=== PATIENT | female | born 1975 | race Caucasian/White ===

== ENCOUNTER 2019-11-11 21:49 | Emergency (ER) | payer OTHER, SELFPAY ==
[2019-11-11] VITALS (11 sets, daily range): BP systolic 143–190; BP diastolic 88–115; PULSE 90–125; RESP 17–29; TEMP 36.8–37.5; O2SAT 94–97; BMI 47.7
--- NOTE | 2019-11-11 22:08 | ED_ITS ---
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 She states she was sitting on her couch and she bent her knee and started feeling pain in her lateral knee but then had discomfort in her calf and thigh which reminded her of prior DVT. She went on to develop some chest pain, pressure and shortness of breath and became concerned that perhaps she had another clot. She denies any runny nose or sore throat. She denies fever or chills. She denies nausea, vomiting or diarrhea. She has had no abdominal pain or urinary complaints. She denies recent travel or exposure to persons known to have COVID-19 Other symptoms: chest pain and SOB Related Data Allergies Allergy/AdvReac Type Severity Reaction Status Date / Time No Known Drug Allergies Allergy Verified 11/11/19 21:59 Review of Systems Constitutional Constitutional: Denies chills, Denies fatigue, Denies fever(s), Denies frequent falls, Denies lethargy and Denies weakness Eyes Eyes: Denies change in vision, Denies eye discharge, Denies irritation and Denies loss of vision ENT Ears, Nose, Mouth, and Throat: Denies change in voice, Denies dizziness, Denies neck pain, Denies sore throat and Denies throat swelling Cardiovascular Cardiovascular: Denies chest pain, Denies irregular heart rhythm, Denies lightheadedness, Denies palpitations, Reports dyspnea, Denies dyspnea on exertion and Denies orthopnea Respiratory Respiratory: Denies cough, Reports dyspnea, Denies dyspnea on exertion and Denies wheezing Gastrointestinal Gastrointestinal: Denies abdominal pain, Denies change in bowel habits, Denies diarrhea, Denies nausea and Denies vomiting Musculoskeletal Musculoskeletal: Denies neck pain and Denies numbness Comments: leg pain Integumentary/Breasts Skin/Breast: Denies pruritus, Denies erythema, Denies rash and Denies wounds Neurologic Neurologic: Denies behavioral changes, Denies confusion, Denies dizziness, Denies frequent falls, Denies loss of vision, Denies numbness and Denies weakness Psychiatric Psychiatric: Denies anxiety, Denies behavioral changes, Denies confusion, Denies depression, Denies homicidal ideation and Denies suicidal ideation Endocrine Endocrine: Denies fatigue, Denies flushing and Denies palpitations Hematologic/Lymphatic Hematologic/Lymphatic: Denies easy bruising Allergic/Immunologic Allergic/Immunologic: Denies urticaria, Denies throat swelling and Denies wheezing Patient History Social History Smoking Status: Never smoker Smoking Status: Never smoker alcohol intake frequency: 0-2 drinks per day Substance Use Type: does not use Exam Narrative Exam Narrative: GENERAL: [44] year old patient appears stated age. Well- nourished, well-developed patient, in mild distress. A bit anxious HEAD: Atraumatic. Normocephalic. EYES: Pupils equal round and reactive. Extraocular motions intact. No scleral icterus. No injection or drainage. ENT: Nose without bleeding, purulent drainage. Throat without erythema, tonsillar hypertrophy or exudate. Airway patent. NECK: Trachea midline. Non tender CARDIOVASCULAR: Regular rate and rhythm without murmurs, gallops, or rubs. RESPIRATORY: Clear to auscultation. Breath sounds equal bilaterally. No wheezes, rales, or rhonchi. GASTROINTESTINAL: Abdomen soft, non-tender, nondistended. EXTREMITIES: Pain on palpation of right lateral knee, no swelling, redness. BACK: Nontender without deformity or crepitance. No flank tenderness. NEURO: AOx3. SKIN: No rash or erythema of visible areas Initial Vital Signs Initial Vital Signs: Vital Signs Temperature 98.2 F 11/11/19 21:50 Pulse Rate 125 H 11/11/19 21:50 Respiratory Rate 19 11/11/19 21:50 Blood Pressure 188/115 H 11/11/19 21:50 Pulse Oximetry 95 11/11/19 21:50 Scores ABCD2 Citation: Lancet. 2006Mar 31;369(6153):283-92. Validation and refinement of scores to predict very early stroke risk after transient ischaemic attack. Roberta SC1, Silvia PM, [place], Mirza MF, Eulogio JS, Gale AL, Juanjo S. Course Orders Ordered: ED Orders 11/11/19 21:59 EKG-12 Lead Stat 11/11/19 22:14 US periph venous low extrem rt Stat 11/11/19 22:30 Basic Metabolic Panel Stat Complete Blood Count AUTO DIFF Stat D Dimer Stat NT-proBNP (BNP-Adult 18+) Stat Prothrombin Time INR Stat Troponin & CK Cardiac Panel Stat 11/11/19 23:05 CT angio chest PE protocol Stat Discontinued Medications Sodium Chloride (Normal Saline 0.9%) 1,000 mls @ 125 mls/hr IV CONT JENNIFER Last Infusion: 11/12/19 00:16 Dose: 0 mls/hr Documented by: Admin: 11/11/19 22:47 Dose: 125 mls/hr Documented by: YVES Vital Signs Vital signs: Vital Signs - 8 hr 11/11/19 21:50 11/11/19 21:55 11/11/19 21:59 Temperature 98.2 F Pulse Rate 125 H 125 H 116 H Respiratory Rate 19 19 Blood Pressure 188/115 H 188/115 H 190/88 H Pulse Oximetry 95 94 97 11/11/19 22:00 11/11/19 22:01 11/11/19 22:30 Temperature Pulse Rate 112 H 116 H 103 H Respiratory Rate 17 20 29 H Blood Pressure 143/92 H Pulse Oximetry 97 97 95 11/11/19 22:32 11/11/19 23:00 11/11/19 23:39 Temperature Pulse Rate 109 H 97 H 110 H Respiratory Rate 25 H 22 Blood Pressure 148/105 H 145/90 H Pulse Oximetry 95 94 97 11/11/19 23:47 11/11/19 23:54 Temperature 99.5 F Pulse Rate 90 Respiratory Rate 21 Blood Pressure 151/88 H Pulse Oximetry 97 MDM - Extremity Injury (Lower) Lab Data Result diagrams: 11/11/19 22:30 11/11/19 22:30 Labs: Lab Results 11/11/19 11/11/19 11/11/19 Range/Units 22:30 22:30 22:30 WBC 17.0 H (4.5-11.0) X10^3/uL RBC 4.64 (4.0-5.2) X10^6/uL Hgb 13.7 (12.0-16.0) g/dL Hct 41.0 (36-46) % MCV 88.2 (80-100) fL MCH 29.6 (26-34) PG MCHC 33.6 (30-36) % RDW 13.1 (11.6-14.8) % Plt Count 348 (150-400) X10^3/uL Neut % (Auto) 66.3 (50-75) % Lymph % (Auto) 25.7 (25-40) % Turner % (Auto) 5.9 (3-14) % Eos % (Auto) 1.2 L (2-4) % Baso % (Auto) 0.9 (0-2) % Neut # (Auto) 49046 H (2813-6516) /uL Lymph # (Auto) 4400 (3967-8748) /uL Turner # (Auto) 1000 H (0-900) /uL Eos # (Auto) 200 (0-450) /uL Baso # (Auto) 200 H (0-100) /uL PT (10.1-12.7) SECONDS INR (0.9-1.3) D-Dimer 285 H (<230) ng/mL Sodium 138 (137-145) mmol/L Potassium 3.8 (3.4-5.1) mmol/L Chloride 106 (98-107) mmol/L Carbon Dioxide 25 (22-32) mmol/L BUN 13 (7-17) mg/dL Creatinine 0.88 (0.52-1.04) mg/dL Estimated GFR > 60.0 (>60) mL/min BUN/Creatinine Ratio 14.8 (6-22) Glucose 116 H (70-100) mg/dL Calcium 9.2 (8.4-10.2) mg/dL Total Creatine Kinase (30-135) U/L CK-MB (CK-2) CK-MB (CK-2) Rel Index Troponin I (0.01-0.034) ng/mL NT-Pro-B Natriuret Pep 60 (<125) pg/mL 11/11/19 11/11/19 Range/Units 22:30 22:30 WBC (4.5-11.0) X10^3/uL RBC (4.0-5.2) X10^6/uL Hgb (12.0-16.0) g/dL Hct (36-46) % MCV (80-100) fL MCH (26-34) PG MCHC (30-36) % RDW (11.6-14.8) % Plt Count (150-400) X10^3/uL Neut % (Auto) (50-75) % Lymph % (Auto) (25-40) % Turner % (Auto) (3-14) % Eos % (Auto) (2-4) % Baso % (Auto) (0-2) % Neut # (Auto) (1711-4160) /uL Lymph # (Auto) (2461-0955) /uL Turner # (Auto) (0-900) /uL Eos # (Auto) (0-450) /uL Baso # (Auto) (0-100) /uL PT 10.7 (10.1-12.7) SECONDS INR 0.9 (0.9-1.3) D-Dimer (<230) ng/mL Sodium (137-145) mmol/L Potassium (3.4-5.1) mmol/L Chloride (98-107) mmol/L Carbon Dioxide (22-32) mmol/L BUN (7-17) mg/dL Creatinine (0.52-1.04) mg/dL Estimated GFR (>60) mL/min BUN/Creatinine Ratio (6-22) Glucose (70-100) mg/dL Calcium (8.4-10.2) mg/dL Total Creatine Kinase 50 (30-135) U/L CK-MB (CK-2) TNP CK-MB (CK-2) Rel Index TNP Troponin I < 0.012 (0.01-0.034) ng/mL NT-Pro-B Natriuret Pep (<125) pg/mL Urine Dip Bedside Urine Glucose Negative Bedside Urine Bilirubin - Negative Bedside Urine Ketone +/- 5 Urine Specific [place] 1.025 Bedside Urine Occult Blood - Negative Bedside Urine pH 6.0 Bedside Urine Protein +/- 15 Bedside Urine Urobilinogen - Negative Bedside Urine Nitrite - Negative Bedside Urine Leukocytes - Negative Esterase Imaging Data US - DVT: Radiologist's Impression: No DVT CT scan - chest: Attestation: I personally reviewed and interpreted this imaging study as follows: Radiologist's Impression: No PE. No AAA. No Pneumonia Discharge Plan Departure Patient Disposition: Home Clinical Impression: Feared complaint without diagnosis Acute leg pain Qualifiers: Laterality: right Qualified Code(s): M79.604 - Pain in right leg Discharge Date/Time: 11/12/19 00:18 Activity Restrictions/Additional Instructions: *You have been diagnosed with [right leg pain, no evidence of clot. CT scan of her chest also very reassuring.] *What to do: *Take medications as directed *Follow up with your primary care provider in 2-3 days, call for an appointment. Let them know you were seen in the Emergency Department and that we ask that you be seen in follow up *Return to ER if you should have any new, worsening or concerning symptoms Referrals: [facility] [Outside]
--- NOTE | 2019-11-11 22:14 | DI.US.S_ITS ---
PROCEDURE: US PERIPH VENOUS LOW EXTREM RT INDICATIONS: PAIN, EDEMA TECHNIQUE: Real-time imaging, as well as color and pulse Doppler interrogation, were performed of the lower extremity deep veins from the inguinal ligament to the popliteal fossa. COMPARISON: None. FINDINGS: The common femoral, femoral and popliteal veins are normally compressible, and free of intraluminal thrombus. Color and pulse Doppler demonstrate normal phasic intraluminal flow. There is normal augmentation response to distal compression maneuver. IMPRESSION: Negative for deep venous thrombosis of the right lower extremity. No significant discrepancy with the night auditor radiology preliminary report. Dictated by: Farhat Zhao M.D. on 11/12/2019 at 7:09 Approved by: Farhat Zhao M.D. on 11/12/2019 at 7:10
[2019-11-11 22:45] LABS: Add Manual Diff / Slide Review NO; Basophils Absolute Auto 200 /uL (0-100); Basophils Percent Auto 0.9 % (0-2); Eosinophils Absolute Auto 200 /uL (0-450); Eosinophils Percent Auto 1.2 % (2-4); Hemoglobin 13.7 g/dL (12.0-16.0); Lymphocytes Absolute Auto 4400 /uL (1100-4500); Lymphocytes Percent Auto 25.7 % (25-40); Mean Corpuscular HGB Conc 33.6 % (30-36); Mean Corpuscular Hemoglobin 29.6 PG (26-34); Mean Corpuscular Volume 88.2 fL (80-100); Monocytes Absolute Auto 1000 /uL (0-900); Monocytes Percent Auto 5.9 % (3-14); Neutrophils Absolute Auto 11300 /uL (1500-7000); Neutrophils Percent Auto 66.3 % (50-75); Platelet Count 348 X10^3/uL (150-400); Red Blood Cell Count 4.64 X10^6/uL (4.0-5.2); Red Cell Distribution Width 13.1 % (11.6-14.8)
[2019-11-11] MEDS: SODIUM CHLORIDE 0.9% 1,000 ML 125 ML IV (22:47)
[2019-11-11 22:50] LABS: INR 0.9 (0.9-1.3); Prothrombin Time 10.7 SECONDS (10.1-12.7)
[2019-11-11 22:53] LABS: Creatine Kinase 50 U/L (30-135)
[2019-11-11 22:54] LABS: BUN Creatinine Ratio 14.8 (6-22); Blood Urea Nitrogen 13 mg/dL (7-17); Calcium 9.2 mg/dL (8.4-10.2); Carbon Dioxide 25 mmol/L (22-32); Chloride 106 mmol/L (98-107); Estimated Glomerular Filt Rate > 60.0 mL/min (>60); Glucose 116 mg/dL (70-100); Potassium 3.8 mmol/L (3.4-5.1); Sodium 138 mmol/L (137-145)
--- NOTE | 2019-11-11 22:56 | PC.NURSE ---
reports shortness of breath, states she walked dog three times today and has asthma and feels she has been very sensitive to the smoke.
[2019-11-11 22:58] LABS: D Dimer 285 ng/mL (<230)
--- NOTE | 2019-11-11 23:05 | DI.CT.S_ITS ---
PROCEDURE: CT ANGIO CHEST PE PROTOCOL INDICATIONS: Chest pain, Shortness of breath, tachycardia, history of PE TECHNIQUE: After the administration of intravenous contrast, 2 mm thick sections acquired from the pulmonary apices to the posterior costophrenic angles. 3-dimensional maximum intensity projection (MIP) coronal and sagittal reformats were then acquired through the thorax. For radiation dose reduction, the following was used: automated exposure control, adjustment of mA and/or kV according to patient size. COMPARISON: None. FINDINGS: Image quality: There is suboptimal timing of contrast bolus limiting evaluation of the pulmonary arteries. The pulmonary arteries were adequately visualized to level of the distal lobar pulmonary arteries. Pulmonary arteries: Pulmonary arteries are normal in size, and demonstrate no intraluminal filling defects to suggest central pulmonary embolism. Lungs and pleura: Lungs are clear. No pleural effusions or pneumothorax. Central and peripheral airways are patent. Mediastinum: Heart size is normal, without pericardial effusion. No mediastinal or hilar adenopathy. Thoracic aorta is normal in caliber and enhancement. Esophagus is normal in caliber, without hiatal hernia. Bones and chest wall: No suspicious bony lesions. Ribs and thoracic spine appear intact throughout. Thyroid gland is unremarkable. No axillary or supraclavicular adenopathy. Abdomen: There are several ill-defined, patchy hyperattenuating versus enhancing lesions within the liver measuring approximately 3.2 cm in the posterior, inferior right hepatic lobe, 4.1 cm in the caudate lobe, and 3.5 cm in the lateral segment of the left hepatic lobe. Other possible smaller lesions are noted but not measured. Remainder of the visualized upper abdominal solid organs and bowel loops appear unremarkable. IMPRESSION: 1. Limited evaluation secondary to suboptimal timing of intravenous contrast bolus. No evidence for acute pulmonary emboli or acute cardiopulmonary abnormalities. 2. Several ill-defined, patchy hyperattenuating versus enhancing lesions within the liver measuring up to 4.1 cm in size. These are incompletely characterized and may be due to relative geographic areas of focal fatty sparing versus possible transient hepatic attenuation differences, versus possible neoplastic process. Recommend outpatient MRI versus CT (liver mass protocol) to further characterize. No significant discrepancy with the security shift supervisor radiology preliminary report. Dictated by: Farhat Zhao M.D. on 11/12/2019 at 7:52 Approved by: Farhat Zhao M.D. on 11/12/2019 at 8:00
[2019-11-11 23:09] LABS: HEMOLYSIS 34 (0-50); NT-proBNP (BNP-Adult 18+) 60 pg/mL (<125)
[2019-11-11 23:10] LABS: Troponin I < 0.012 ng/mL (0.01-0.034)
== END 2019-11-12 00:18 | disposition home or self-care (01) ==
PROVIDERS: Emergency Provider Emergency Medicine
DX: M79.604 Pain in right leg (principal); R07.9 Chest pain, unspecified; R06.02 Shortness of breath; Z86.718 Personal history of other venous thrombosis and embolism
CPT/HCPCS: 36415; 71275; 80048; 81003; 82550; 83880; 84484; 85025; 85379; 85610; 93005; 93971; 96360; 99284; Q9967